=== PATIENT | female | born 1950 | race Native Hawaiian/Other Pacific Islander ===

== ENCOUNTER → 2017-07-10 | Outpatient (CLI) | payer OTHER ==
[~2017-07-10] VITALS: Ht 152.4 cm; Wt 69.0 kg
[~2017-07-10] MED LIST: AMLO5TAB2 PO; ASPI81CH CHEW; ATOR20TA15 PO; CHLORHEXIDINE GLUCONATE 2 % 1 PACK (2 CLOTHS) TOPICAL PRN; INSULIN HUMAN REGULAR 1,000 UNITS/10 ML VIAL SQ PRN; LACTATED RINGER'S 1000 ML IV PRN; METF500T PO; METO-338 PO; METOPROLOL TARTRATE 25 MG TAB PO PRN; POVIDONE IODINE 5% (ANTISEPSIS KIT) 4 APPLICATIONS EACH NARE PRN; PROPOFOL 200 MG/20 ML AMP IV PUSH ONE; PROPOFOL 200 MG/20 ML AMP ONE; SODIUM CHLORID 0.9% 500 ML IV PRN
[2017-07-10 12:26] VITALS: BP 122/67; PULSE 68; RESP 16; TEMP 96.8; O2SAT 94
--- NOTE | 2017-07-10 12:27 | PD.PROCEDR ---
GI Procedure REFERRING PHYSICIAN Dr. Madrid PROCEDURE PERFORMED EGD followed by colonoscopy INDICATION FOR PROCEDURE Reflux, right lower quadrant pain, screening colonoscopy PROCEDURE: The procedure, risks and benefits were discussed with Ms. Aguilar and informed consent was obtained. Anesthesia sedated her with Diprivan. She was placed in the left lateral decubitus position. EGD: The Pentax videoscope was introduced through the oropharynx and advanced to the second portion of the duodenum under direct visualization. Retroflexion was performed in the stomach. FINDINGS: The esophagus this appeared to be unremarkable within normal limits The stomach there was a small hiatal hernia the stomach was otherwise unremarkable with normal limits The duodenum this too was normal Colonoscopy: The Pentax videoscope was introduced through the rectum and advanced to cecum where the ileocecal valve and appendiceal orifice were identified. Retroflexion was performed in the rectum. Colonic prep was good FINDINGS: Colonic withdrawal time greater than 6 minutes as the scope was slowly withdrawn clonic mucosa was carefully inspected this noted to be unremarkable and within normal limits so as retroflexion and rectal examination I did note mild diverticulosis of the sigmoid region otherwise all was normal ESTIMATED BLOOD LOSS: None SPECIMENS REMOVED: None COMPLICATIONS: None IMPRESSION: Small hiatal hernia Mild sigmoid diverticulosis PLAN: High-fiber diet Recommend MRI with and without contrast to further evaluate the lymphadenopathy , right lower quadrant pain, liver lesions Follow-up in GI in 3-4 weeks after MRI Colonoscopy in 10 years Ruddy Hutchinson MD Jul 10, 2017 12:27
--- NOTE | 2017-07-10 20:38 | EKG ---
Date Performed: 07/10/2017 Time Performed: 09:37:51 PTAGE: 66 years EKG: Sinus rhythm MODERATE T-WAVE ABNORMALITY, CONSIDER ANTEROLATERAL ISCHEMIA ABNORMAL ECG NO PREVIOUS TRACING DOCTOR: Jeffrey Garcia Interpretating Date/Time 07/10/2017 20:37:47
== END ==
LOC: HSDC 08:51
PROVIDERS: ATTEND Internal Medicine Gastroenterology
DX: R10.31 Right lower quadrant pain (principal); K21.9 Gastro-esophageal reflux disease without esophagitis; K44.9 Diaphragmatic hernia without obstruction or gangrene; K57.30 Diverticulosis of large intestine without perforation or abscess without bleeding; R94.31 Abnormal electrocardiogram [ECG] [EKG]
CPT/HCPCS: 00740; 00810; 43235; 45378; 93005; J7120